=== PATIENT | female | born 1985 | race Caucasian/White ===

== ENCOUNTER 2016-12-07 13:35 | Day surgery (SDC) | payer MEDICAID ==
[~2016-12-07] VITALS: Ht 152.4 cm; Wt 70.6 kg
[~2016-12-07 13:35] MED LIST: FLEXERIL 1010 MG/TAB PO; NAPROSYN500 MG PO; NORCO 325 MG-51 TAB PO; SPRINTEC 35 MCG1 TAB PO
[2016-12-07 14:25] VITALS: BP 107/68; PULSE 74; TEMP 98.5
[2016-12-07] MEDS ORDERED: CARAFATE 1GM1 G PO (14:35)
[2016-12-07] MEDS ORDERED: DAZIDOX10 MG PO (14:36)
[2016-12-07] MEDS ORDERED: PRILOSEC 20MG20 MG PO (14:37)
[2016-12-07] MEDS ORDERED: LYRICA 75MG CAP75 MG PO (14:37)
[2016-12-07] MEDS ORDERED: LIDO35.4 TOP (14:37)
[2016-12-07 15:42] VITALS: BP 108/62; PULSE 69; TEMP 97.8
[2016-12-07 15:57] VITALS: BP 92/62; PULSE 60
[2016-12-07 16:12] VITALS: BP 104/63; PULSE 63
[2016-12-07 16:27] VITALS: BP 93/61; PULSE 81
== END 2016-12-07 16:50 | disposition home or self-care (01) ==
LOC: SDCO 13:35
DX: K21.0 Gastro-esophageal reflux disease with esophagitis (principal); K30 Functional dyspepsia; K92.1 Melena; R01.1 Cardiac murmur, unspecified; K64.1 Second degree hemorrhoids; M79.7 Fibromyalgia; K58.1 Irritable bowel syndrome with constipation; K58.0 Irritable bowel syndrome with diarrhea; E55.9 Vitamin D deficiency, unspecified; D64.9 Anemia, unspecified; J45.909 Unspecified asthma, uncomplicated; F17.210 Nicotine dependence, cigarettes, uncomplicated
CPT/HCPCS: J2250; J2405; J3010; J7030